=== PATIENT | female | born 1990 | race Hispanic/Latino ===

== ENCOUNTER 2021-12-30 01:34 | Inpatient (IN) | payer MEDICAID, SELFPAY ==
[2021-12-30] MEDS ORDERED: Acetaminophen 500 MG TAB ONE (02:15)
[2021-12-30] MEDS ORDERED: Morphine 4 MG/ML VIAL ONE (03:12)
[2021-12-30] MEDS ORDERED: Ondansetron ODT 4 MG TAB ONE (03:12)
[2021-12-30 03:55] VITALS: BMI 36.6
[2021-12-30] MEDS ORDERED: Ondansetron PF 4 MG/2 ML Vial IVP PRN (04:09)
[2021-12-30] MEDS ORDERED: HYDROcodone/Acetaminophen 5/325 mg Tablet PO PRN (04:09)
[2021-12-30] MEDS ORDERED: Lidocaine 1% (PF) 30 ML VIAL SC PRN (04:09)
[2021-12-30] MEDS ORDERED: hydrALAZINE 20 MG/ML VIAL SLOW IVP PRN (04:09)
[2021-12-30] MEDS ORDERED: Ibuprofen 800 MG TAB PO PRN (04:09)
[2021-12-30] MEDS ORDERED: Lactated Ringer's 1,000 ML IV SCH ×2 (04:15)
[2021-12-30] MEDS ORDERED: NS w/ Oxytocin 30 units 500 ML IV SCH (04:15)
[2021-12-30] MEDS ORDERED: Morphine 10 MG/ML VIAL ONE (04:25)
[2021-12-30] MEDS ORDERED: Morphine 10 MG/ML VIAL SLOW IVP SCH (04:30)
[2021-12-30] MEDS ORDERED: Fentanyl 2 mcg/Bup 0.1% Cadd 100 ML ONE (04:45)
[2021-12-30 05:16] LABS: White Blood Cell (WBC) Count 11.5 10x3/uL (3.5-10.5)
[2021-12-30 05:17] LABS: Mean Corpuscular HGB CONC 33.3 g/dL (32.0-36.0); Mean Corpuscular Hemoglobin 26.2 pg (27.0-33.0); Mean Corpuscular Volume 78.6 fl (81.6-98.3); Mean Platelet Volume 11.3 fl (7.4-10.4); Platelet Count 302 10x3/uL (150-450); RBC Distribution Width 14.4 % (11.5-14.5)
[2021-12-30] MEDS: Misoprostol 100 MCG TAB ONE ×4 (05:58→06:18)
[2021-12-30] MEDS: Misoprostol 200 MCG TAB ONE (06:04)
[2021-12-30 13:10] LABS: Hemoglobin 9.7 g/dL (12.0-15.5)
== END 2021-12-30 14:10 | disposition home or self-care (01) | DRG 779 ==
LOC: CSHERS 01:34 → CSHLD/OP 03:51 → CSHLD 04:31
PROVIDERS: ADMIT Obstetrics & Gynecology; ATTEND Obstetrics & Gynecology
PROC: 10D17Z9 Manual Extraction of Products of Conception, Retained, Via Natural or Artificial Opening (ICD-10-PCS; principal; 2021-12-30)
PROC: 0UC97ZZ Extirpation of Matter from Uterus, Via Natural or Artificial Opening (ICD-10-PCS; 2021-12-30)
DX: O03.4 Incomplete spontaneous abortion without complication (principal); O34.211 Maternal care for low transverse scar from previous cesarean delivery; Z79.899 Other long term (current) drug therapy
CPT/HCPCS: 36415; 76815; 85027; 86850; 86900; 86901; 99285; J2270; Q0162

== ENCOUNTER 2022-10-02 22:06 | Emergency (ER) | payer OTHER, SELFPAY ==
[2022-10-02 22:33] LABS: #Eosinphils 0.1 10x3/uL (0.0-0.5); #Monocytes 0.5 10x3/uL (0.0-1.1); #Neutrophils 5.1 10x3/uL (1.5-8.4); %Basophils 0.5 % (0.0-2.0); %Eosinophils 1.6 % (0.0-6.0); %Lymphocytes 32.9 % (18.0-47.0); %Monocytes 5.3 % (0.0-10.0); %Neutrophils 59.4 % (40.0-75.0); Hemoglobin 11.2 g/dL (12.0-15.5); Mean Corpuscular HGB CONC 31.5 g/dL (32.0-36.0); Mean Corpuscular Hemoglobin 25.3 pg (27.0-33.0); Mean Corpuscular Volume 80.1 fl (81.6-98.3); Mean Platelet Volume 10.3 fl (7.4-10.4); Platelet Count 356 10x3/uL (150-450); RBC Distribution Width 14.8 % (11.5-14.5); Red Blood Cell (RBC) Count 4.43 10x6/uL (3.90-5.03); White Blood Cell (WBC) Count 8.6 10x3/uL (3.5-10.5)
== END 2022-10-02 23:59 | disposition home or self-care (01) ==
LOC: CSHERS 22:06
DX: O20.0 Threatened abortion (principal); Z3A.00 Weeks of gestation of pregnancy not specified
CPT/HCPCS: 36415; 76856; 84702; 85025; 86850; 86900; 86901

== ENCOUNTER 2022-10-05 06:25 | Day surgery (SDC) | payer OTHER ==
[2022-10-04 12:39] VITALS: BMI 38.4
[2022-10-05] MEDS ORDERED: Misoprostol 200 MCG TAB ONE (08:31)
[2022-10-05] MEDS ORDERED: cefTRIAXone (ROCEPHIN) 1 GM VIAL ONE (08:44)
[2022-10-05] MEDS ORDERED: PROPOFOL 20 ML ONE (08:53)
[2022-10-05] MEDS ORDERED: Midazolam HCl 2 mg/2 ml Vial ONE (08:53)
[2022-10-05] MEDS ORDERED: fentaNYL 50 mcg/mL 1 mL Vial ONE (08:53)
[2022-10-05] MEDS ORDERED: Ondansetron PF 4 MG/2 ML Vial ONE (08:54)
[2022-10-05] MEDS ORDERED: Dexamethasone 4 mg/ml Vial ONE (08:54)
[2022-10-05] MEDS ORDERED: Methylergonovine 0.2 MG/ML VIAL ONE (08:58)
[2022-10-05] MEDS ORDERED: Lidocaine 1% PF 5 ML VIAL ONE (08:58)
[2022-10-05] MEDS ORDERED: Ketorolac Tromethamine 30 MG/ML VIAL ONE (09:13)
[2022-10-05] MEDS ORDERED: Ondansetron PF 4 MG/2 ML Vial IVP PRN (09:33)
[2022-10-05] MEDS ORDERED: Ibuprofen 400 MG TAB PO PRN (09:33)
[2022-10-05] MEDS ORDERED: Misoprostol 200 MCG TAB PO SCH (09:45)
== END 2022-10-05 11:05 | disposition home or self-care (01) ==
LOC: CSHSDC 06:25
PROVIDERS: ATTEND Obstetrics & Gynecology
PROC: 10D17ZZ Extraction of Products of Conception, Retained, Via Natural or Artificial Opening (ICD-10-PCS; principal; 2022-10-05)
DX: O02.1 Missed abortion (principal)
CPT/HCPCS: 36415; 86850; 86900; 86901; 88305; J0696; J1100; J1885; J2210; J2250; J2405; J2704; J3010